=== PATIENT | female | born 1990 | race Native Hawaiian/Other Pacific Islander ===

== ENCOUNTER 2023-12-15 21:29 | Emergency (ER) | payer OTHER ==
[2023-12-15] MEDS ORDERED: Ondansetron 4 MG Tab.DIS PO ONE (21:30)
[2023-12-15] MEDS: Ondansetron 4 MG/2 ML SDV IVPUSH ONE (22:12)
[2023-12-15 22:20] LABS: BASOPHILS ABSOLUTE AUTO 0.1 x10-3/uL (0.0-0.1); BASOPHILS PERCENT AUTO 1.3 % (0.2-1.5); EOSINOPHILS ABSOLUTE AUTO 0.1 x10-3/uL (0.0-0.8); EOSINOPHILS PERCENT AUTO 1.2 % (0.6-8.1); HEMATOCRIT 34.4 % (34.2-48.2); LYMPHOCYTES ABSOLUTE AUTO 2.8 x10-3/uL (1.0-4.4); LYMPHOCYTES PERCENT AUTO 37.9 % (18.4-52.1); MEAN CORPUSCULAR HGB CONC 29.1 g/dL (31.9-34.8); MEAN CORPUSCULAR VOLUME 65.2 fL (76.7-100.5); MEAN PLATELET VOLUME 6.9 fL (7.1-12.4); MONOCYTES ABSOLUTE AUTO 0.5 x10-3/uL (0.3-1.0); MONOCYTES PERCENT AUTO 7.3 % (4.4-15.7); NEUTROPHILS ABSOLUTE AUTO 3.9 x10-3/uL (1.5-6.3); NEUTROPHILS PERCENT AUTO 52.3 % (30.8-76.2); PLATELET COUNT,PLT 471 x10(3)uL (151-488); RED CELL DISTRIBUTION WIDTH 21.2 % (12.3-16.5); WHITE BLOOD CELL COUNT,WBC 7.5 x10-3/uL (3.0-10.3)
[2023-12-15 22:25] LABS: BLOOD UREA NITROGEN,BUN 8 mg/dL (7-18); BUN/CREATININE RATIO 11.4 (9-20); CALCIUM 8.3 mg/dL (8.6-10.2); CARBON DIOXIDE,CO2 24 mmol/L (21-32); CHLORIDE,CL 102 mmol/L (100-110); CREATININE 0.7 mg/dL (0.55-1.02); ESTIMATED GFR 116 mL/min (>60); GLUCOSE RANDOM 103 mg/dL (80-116); POTASSIUM,K 4.1 mmol/L (3.5-5.3); SODIUM,NA 135 mmol/L (135-145)
[2023-12-15 22:30] LABS: A/G RATIO 0.9; ALANINE AMINOTRANSFERASE,ALT 88 U/L (12-36); ALBUMIN 3.3 g/dL (3.5-5.2); ALKALINE PHOSPHATASE 97 IU/L (56-112); ASPARTATE AMNIOTRANSFERASE,AST 47 IU/L (5-25); BILIRUBIN TOTAL 0.8 mg/dL (0.1-1.3); PROTEIN TOTAL,TP 7.2 g/dL (6.0-8.0)
[2023-12-15 22:31] LABS: RED BLOOD CELL COUNT 5.28 x10(6)uL (3.60-5.20)
[2023-12-15 22:34] LABS: HEMOGLOBIN A1C 4.8 % (<5.7)
[2023-12-15 22:35] LABS: BASE EXCESS VENOUS,POC -3 mmol/L (-2 - 3+); PCO2 VENOUS,POC 36 mmHg (41-51); PH VENOUS,POC 7.39 pH Units (7.32-7.43)
[2023-12-15] MEDS: Sodium Chloride 0.9% 1,000 ML IV SCH (22:42)
[2023-12-15 23:11] LABS: BILIRUBIN,URINE NEGATIVE (NEGATIVE); GLUCOSE,URINE NORMAL (NORMAL); KETONES,URINE NEGATIVE (NEGATIVE); LEUKOCYTE ESTERASE,URINE SMALL (NEGATIVE); NITRITE,URINE NEGATIVE (NEGATIVE); OCCULT BLOOD,URINE NEGATIVE (NEGATIVE); PROTEIN,URINE NEGATIVE (NEGATIVE); UROBILINOGEN,URINE NORMAL (NEGATIVE)
[2023-12-15 23:13] LABS: APPEARANCE,URINE SLIGHTLY CLOUDY (CLEAR); BACTERIA,URINE FEW (NS); COLOR,URINE YELLOW (YELLOW); RBC,URINE 0-5 (0-5); SQUAMOUS EPITHELIAL CELLS,UR FEW (NS,R,O); WBC,URINE 0-5 (0-5)
[2023-12-15 23:14] LABS: MUCUS,URINE MODERATE (NS)
[2023-12-15] MEDS: Ketorolac 30 MG/ML SDV IVPUSH ONE (23:25)
[2023-12-15] MEDS: Metoclopramide 10 MG/2 ML SDV IVPUSH ONE (23:25)
[2023-12-15] MEDS: Iopamidol 755 Mg/ML 100 ML Bottle IV SCH (23:45)
== END 2023-12-16 01:34 | disposition home or self-care (01) ==
LOC: FB.ED 21:29
DX: K46.9 Unspecified abdominal hernia without obstruction or gangrene (principal); K56.600 Partial intestinal obstruction, unspecified as to cause; Z90.49 Acquired absence of other specified parts of digestive tract; Z79.899 Other long term (current) drug therapy
CPT/HCPCS: 36415; 74177; 80053; 81001; 83036; 83690; 83735; 84484; 85025; 86140; 96361; 96374; 96375; 99284; 99284-25; J1885; J2405; J2765; J7030; Q0162; Q9967

== ENCOUNTER 2025-03-13 20:54 | Emergency (ER) | payer BC, OTHER ==
[2025-03-13] MEDS ORDERED: Ondansetron 4 MG Tab.DIS PO ONE (20:55)
[2025-03-13] MEDS ORDERED: Sodium Chloride 0.9% 10 ML Syringe FLUSH PRN (21:19)
[2025-03-13 21:48] LABS: BILIRUBIN,URINE SMALL (NEGATIVE); GLUCOSE,URINE NORMAL (NORMAL); KETONES,URINE NEGATIVE (NEGATIVE); LEUKOCYTE ESTERASE,URINE SMALL (NEGATIVE); NITRITE,URINE POSITIVE (NEGATIVE); OCCULT BLOOD,URINE NEGATIVE (NEGATIVE); PROTEIN,URINE NEGATIVE (NEGATIVE); UROBILINOGEN,URINE 1 mg/dL (NEGATIVE)
[2025-03-13 21:50] LABS: HEMATOCRIT 30.2 % (34.2-48.2); HEMOGLOBIN 9.1 g/dL (11.4-15.5); MEAN CORPUSCULAR HEMOGLOBIN 19.2 pg (23.9-33.9); MEAN CORPUSCULAR HGB CONC 30.1 g/dL (31.9-34.8); MEAN CORPUSCULAR VOLUME 63.9 fL (76.7-100.5); RED CELL DISTRIBUTION WIDTH 19.4 % (12.3-16.5); WHITE BLOOD CELL COUNT,WBC 7.3 x10-3/uL (3.0-10.3)
[2025-03-13 21:54] LABS: APPEARANCE,URINE CLOUDY (CLEAR); COLOR,URINE YELLOW (YELLOW)
[2025-03-13 21:55] LABS: BLOOD UREA NITROGEN,BUN 8 mg/dL (7-18); CALCIUM 8.4 mg/dL (8.6-10.2); CARBON DIOXIDE,CO2 25 mmol/L (21-32); CHLORIDE,CL 103 mmol/L (100-110); EST CRCL DRUG DOSING (CG) 72.81 mL/min; ESTIMATED GFR 75 mL/min (>60); GLUCOSE RANDOM 107 mg/dL (80-116); POTASSIUM,K 3.6 mmol/L (3.5-5.3); SODIUM,NA 138 mmol/L (135-145)
[2025-03-13 21:56] LABS: BACTERIA,URINE MANY (NS); RBC,URINE 0-5 (0-5); SQUAMOUS EPITHELIAL CELLS,UR FEW (NS,R,O); WBC,URINE 0-5 (0-5)
[2025-03-13 22:01] LABS: A/G RATIO 0.9; ALANINE AMINOTRANSFERASE,ALT 32 U/L (12-36); ALBUMIN 3.4 g/dL (3.5-5.2); ALKALINE PHOSPHATASE 136 IU/L (56-112); ASPARTATE AMNIOTRANSFERASE,AST 26 IU/L (5-25); BILIRUBIN TOTAL 0.9 mg/dL (0.1-1.3); MAGNESIUM 2.1 mg/dL (1.8-2.5); PROTEIN TOTAL,TP 7.4 g/dL (6.0-8.0)
[2025-03-13 22:03] LABS: RED BLOOD CELL COUNT 4.72 x10(6)uL (3.60-5.20)
[2025-03-13] MEDS: Sodium Chloride 0.9% 1,000 ML IV ONE (22:40)
[2025-03-13] MEDS: Promethazine 12.5 MG in Sodium Chloride 0.9% 50 ML IV ONE (22:41)
[2025-03-14] MEDS: Ketorolac 30 MG/ML SDV IVPUSH ONE (00:37)
[2025-03-14] MEDS: Pantoprazole 40 MG Vial IVPUSH ONE (00:51)
[2025-03-14] MEDS: Cefdinir 300 MG Cap PO ONE (01:13)
== END 2025-03-14 01:24 | disposition home or self-care (01) ==
LOC: FB.ED 20:54
DX: N39.0 Urinary tract infection, site not specified (principal); D50.9 Iron deficiency anemia, unspecified; R11.2 Nausea with vomiting, unspecified; E86.0 Dehydration; Z90.49 Acquired absence of other specified parts of digestive tract
CPT/HCPCS: 36415; 74176; 80053; 81001; 81025; 83605; 83735; 85027; 86140; 87086; 87088; 87186; 96361; 96365; 96375; 99284; A9270; J1885; J2470; J2550; J7030; Q0162

== ENCOUNTER 2025-07-04 14:13 | Emergency (ER) | payer BC ==
[2025-07-04] MEDS ORDERED: Ondansetron 4 MG Tab.DIS PO ONE (14:14)
[2025-07-04] MEDS ORDERED: Sodium Chloride 0.9% 10 ML Syringe FLUSH PRN (14:39)
[2025-07-04 15:14] LABS: BASOPHILS ABSOLUTE AUTO 0.0 x10-3/uL (0.0-0.1); BASOPHILS PERCENT AUTO 0.4 % (0.2-1.5); EOSINOPHILS ABSOLUTE AUTO 0.0 x10-3/uL (0.0-0.8); EOSINOPHILS PERCENT AUTO 0.9 % (0.6-8.1); LYMPHOCYTES ABSOLUTE AUTO 1.1 x10-3/uL (1.0-4.4); LYMPHOCYTES PERCENT AUTO 27.4 % (18.4-52.1); MEAN PLATELET VOLUME 6.8 fL (7.1-12.4); MONOCYTES ABSOLUTE AUTO 0.3 x10-3/uL (0.3-1.0); MONOCYTES PERCENT AUTO 7.6 % (4.4-15.7); NEUTROPHILS ABSOLUTE AUTO 2.6 x10-3/uL (1.5-6.3); NEUTROPHILS PERCENT AUTO 63.7 % (30.8-76.2); PLATELET COUNT,PLT 537 x10(3)uL (151-488); RED CELL DISTRIBUTION WIDTH 19.9 % (12.3-16.5); WHITE BLOOD CELL COUNT,WBC 4.1 x10-3/uL (3.0-10.3)
[2025-07-04 15:17] LABS: BLOOD UREA NITROGEN,BUN 7 mg/dL (7-18); CARBON DIOXIDE,CO2 26 mmol/L (21-32); CHLORIDE,CL 103 mmol/L (100-110); CREATININE 0.7 mg/dL (0.55-1.02); ESTIMATED GFR 115 mL/min (>60); GLUCOSE RANDOM 88 mg/dL (80-116); POTASSIUM,K 4.4 mmol/L (3.5-5.3); SODIUM,NA 134 mmol/L (135-145)
[2025-07-04 15:22] LABS: RED BLOOD CELL COUNT 4.71 x10(6)uL (3.60-5.20)
[2025-07-04 15:23] LABS: ETHANOL BLOOD MEDICAL < 0.03 % (<0.03)
[2025-07-04 15:24] LABS: A/G RATIO 0.8; ALANINE AMINOTRANSFERASE,ALT 27 U/L (12-36); ASPARTATE AMNIOTRANSFERASE,AST 23 IU/L (5-25); BILIRUBIN TOTAL 0.7 mg/dL (0.1-1.3); PROTEIN TOTAL,TP 7.1 g/dL (6.0-8.0)
[2025-07-04] MEDS: Ondansetron 4 MG/2 ML SDV IVPUSH ONE (15:29)
[2025-07-04 15:41] LABS: GLUCOSE,URINE NORMAL (NORMAL); OCCULT BLOOD,URINE NEGATIVE (NEGATIVE)
[2025-07-04 15:42] LABS: AMPHETAMINES SCREEN, URINE NEGATIVE (NEGATIVE); APPEARANCE,URINE CLEAR (CLEAR); METHADONE SCREEN, URINE NEGATIVE (NEGATIVE); METHAMPHETAMINE SCREEN, URINE NEGATIVE (NEGATIVE); OXYCODONE SCREEN,URINE NEGATIVE (NEGATIVE)
[2025-07-04 15:43] LABS: BUPRENORPHINE SCREEN,URINE NEGATIVE (NEGATIVE)
[2025-07-04] MEDS: LORazepam 2 MG/ML SDV IVPUSH ONE ×2 (16:53→17:38)
== END 2025-07-04 19:36 | disposition home or self-care (01) ==
LOC: FB.ED 14:13
DX: F10.139 Alcohol abuse with withdrawal, unspecified (principal); E86.0 Dehydration; R03.0 Elevated blood-pressure reading, without diagnosis of hypertension; Z32.02 Encounter for pregnancy test, result negative; R11.2 Nausea with vomiting, unspecified; Y90.9 Presence of alcohol in blood, level not specified
CPT/HCPCS: 36415; 80053; 80307; 81003; 81025; 83605; 83690; 83735; 85025; 96361; 96365; 96375; 96376; 99284; A9270; J1920; J2060; J2405; J2550; J7030; Q0162